=== PATIENT | male | born 2000 | race Caucasian/White ===

== ENCOUNTER 2019-04-07 21:06 | Emergency (ER) | payer BC, OTHER ==
[~2019-04-07] VITALS: Ht 177.8 cm; Wt 76.6 kg
[2019-04-07] MEDS ORDERED: L.E.T SOLUTION TP ONE (22:10)
[2019-04-07 22:39] LABS: BASOPHILS # (AUTO) 0.03 x10^3/uL (0-0.3); BASOPHILS % (AUTO) 1 % (0-1); EOSINOPHILS # (AUTO) 0.14 x10^3/uL (0-0.8); EOSINOPHILS % (AUTO) 2 % (1-7); LYMPHOCYTES # (AUTO) 2.94 x10^3/uL (1-6.1); LYMPHOCYTES % (AUTO) 47 % (22-44); MD NO; MEAN CORPUSCULAR HEMOGLOBIN 29.4 pg (27.5-34.5); MEAN CORPUSCULAR HGB CONC 33.6 g/dL (33.2-36.2); MEAN CORPUSCULAR VOLUME 87.5 fL (81-97); MONOCYTES # (AUTO) 0.53 x10^3/uL (0-1.4); MONOCYTES % (AUTO) 8 % (2-9); NEUTROPHILS # (AUTO) 2.68 x10^3/uL (1.8-8.0); NEUTROPHILS % (AUTO) 42 % (42-75); PLATELET COUNT 337 x10^3/uL (130-400); RED BLOOD COUNT 5.53 x10^6/uL (4.38-5.82); RED CELL DISTRIBUTION WIDTH 12.9 % (9.4-14.8)
[2019-04-07 22:50] LABS: ALANINE AMINOTRANSFERASE 29 U/L (12-78); ALBUMIN 4.3 g/dL (3.4-5.0); ANION GAP 8 mmol/L (5-15); CALCIUM 9.3 mg/dL (8.5-10.1); CHLORIDE 106 mmol/L (98-107); CREATININE 1.13 mg/dL (0.7-1.3)
[2019-04-07 22:53] LABS: ALKALINE PHOSPHATASE 71 U/L (45-117); BILIRUBIN,TOTAL 0.5 mg/dL (0.2-1.0); TOTAL PROTEIN 8.2 g/dL (6.4-8.2)
--- NOTE | 2019-04-08 | NUR ---
BACK FROM CT.
[2019-04-08] MEDS ORDERED: OMNIPAQUE 350 MG/ML, 100ML BOTTLE ONE (00:09)
[2019-04-08 00:40] VITALS: BP 132/83
== END 2019-04-08 01:15 | disposition home or self-care (01) ==
LOC: ED 23:59
DX: R10.32 Left lower quadrant pain (principal); K59.00 Constipation, unspecified
CPT/HCPCS: 36415; 74177; 80053; 83690; 85025; 99284; Q9967